=== PATIENT | female | born 2000 | race Caucasian/White ===

== ENCOUNTER → 2022-04-19 | Outpatient (CLI) | payer OTHER | LOC: KOH-I 09:45 | DX: M22.01 Recurrent dislocation of patella, right knee (principal); S83.011A Lateral subluxation of right patella, initial encounter; X58.XXXA Exposure to other specified factors, initial encounter; R60.0 Localized edema; M79.4 Hypertrophy of (infrapatellar) fat pad | CPT/HCPCS: 73721 ==